=== PATIENT | female | born 2000 | race Caucasian/White ===

== ENCOUNTER 2020-08-26 06:14 | Day surgery (SDC) | payer OTHER ==
[2020-08-26] VITALS (7 sets, daily range): BP systolic 123–143; BP diastolic 67–86
[~2020-08-26] VITALS: Ht 157.5 cm; Wt 74.4 kg
[~2020-08-26 06:14] MED LIST: HEPARIN SOD (PORCINE) 5000UNITS/ML 1ML VIAL/SYRINGE SQ ONE; LIDOCAINE 1% MDV 20ML VIAL SQ PRN; LR 1,000 ML IV ONE; MIDOTAB PO; ceFAZolin SOD 1 GM in D5W MINI-BAG PLUS 50 ML IV ONE
[2020-08-26 06:43] LABS: HEMATOCRIT 43.1 % (36.0-47.0); HEMOGLOBIN 14.5 g/dl (12.0-15.5); MEAN CORPUSCULAR HEMOGLOBIN 31.3 pg (27.0-33.0); MEAN CORPUSCULAR HGB CONC 33.6 g/dl (32.0-36.5); MEAN CORPUSCULAR VOLUME 92.9 fl (80.0-96.0); PLATELET COUNT, AUTOMATED 306 10^3/uL (150-450); RED BLOOD COUNT 4.64 10^6/uL (4.00-5.40); WHITE BLOOD COUNT 9.1 10^3/uL (4.0-10.0)
[2020-08-26] MEDS ORDERED: MIDAZOLAM INJ 2MG/2ML VIAL (J2250 PER 1MG) As Ordered ONE (07:19)
[2020-08-26] MEDS ORDERED: fentaNYL 250 MCG/5 ML INJECTION (J3010) As Ordered ONE (07:19)
[2020-08-26] MEDS ORDERED: ROCURONIUM BROMIDE 50 MG/5 ML VIAL As Ordered ONE ×2 (07:19→08:20)
[2020-08-26] MEDS ORDERED: ONDANSETRON 4MG/2ML VIAL As Ordered ONE (07:19)
[2020-08-26] MEDS ORDERED: LIDOCAINE 2% 100MG/5ML SDV (FOR ANES.) As Ordered ONE (07:19)
[2020-08-26] MEDS ORDERED: dexameTHASONE 4 MG/ML 1ML VIAL (J1100 PER 1MG) As Ordered ONE (07:19)
[2020-08-26] MEDS ORDERED: propofoL 200 MG/20 ML VIAL As Ordered ONE ×2 (07:19→07:45)
[2020-08-26] MEDS ORDERED: BUPIVACAINE LIPOSOME/PF 1.3% 20ML VIAL (13.3MG/ML)(EXPAREL)(C9290 PER1MG) As Ordered ONE (07:26)
[2020-08-26] MEDS ORDERED: BACITRACIN PWD 50,000 UNITS VIAL As Ordered ONE (07:26)
[2020-08-26] MEDS ORDERED: LACRILUBE (AKWA TEARS) OPHTH OINT 3.5 GM As Ordered ONE (08:00)
[2020-08-26] MEDS ORDERED: SUGAMMADEX SODIUM 500 MG/5 ML VIAL (BRIDION) As Ordered ONE (08:00)
[2020-08-26] MEDS ORDERED: HYDROmorphone HCL 2 MG/ML 1ML VIAL (J1170) As Ordered ONE (08:00)
[2020-08-26] MEDS ORDERED: ACETAMINOPHEN 1000MG 100ML IV BTL (OFIRMEV) (J0131 PER 10MG) As Ordered ONE (08:00)
--- NOTE | 2020-08-26 10:53 | POST-OPPD ---
Postoperative Procedure Note Date Of Procedure: Aug 26, 2020 PREOPERATIVE DIAGNOSIS: bilateral breast hypertrophy POSTOPERATIVE DIAGNOSIS: same FINDINGS: large breasts PROCEDURE: Bilateral breast reduction SURGEON: Dr Young ANESTHESIA: General SPECIMENS: Right breast 403 gm, Left breast 362 gm ESTIMATED BLOOD LOSS: 50cc REPLACED: none DRAINS: 10 mm DONTA x 2 COMPLICATIONS: none POSTOPERATIVE CONDITION: stable DANDRE YOUNG DO Aug 26, 2020 10:52
[2020-08-26] MEDS ORDERED: ONDANSETRON 4MG/2ML VIAL IV PRN ×2 (11:00→11:30)
[2020-08-26] MEDS ORDERED: ACETAMINOPHEN TAB 650MG DOSE (2X325MG) PO PRN (11:00)
[2020-08-26] MEDS ORDERED: PERCOCET 5MG/325MG TAB PO PRN (11:00)
[2020-08-26] MEDS ORDERED: LR 1,000 ML IV SCH (11:30)
[2020-08-26] MEDS ORDERED: fentaNYL 100 MCG/2 ML INJECTION (J3010) IV PRN (11:30)
[2020-08-26] MEDS ORDERED: HYDROMORPHONE HCL 0.5 MG/ 0.5 ML SYRINGE (J1170 PER 1) IV PRN (11:30)
[2020-08-26] MEDS ORDERED: oxyCODONE 5MG TAB PO PRN (11:30)
[2020-08-26] MEDS: LR 1,000 ML IV SCH (15:53)
[2020-08-26] MEDS: ceFAZolin SOD 1 GM in D5W MINI-BAG PLUS 50 ML IV SCH (15:53)
[2020-08-26] MEDS: KETOROLAC TROMETHAMINE 10 MG TAB PO PRN (15:56)
[2020-08-27] MEDS: ceFAZolin SOD 1 GM in D5W MINI-BAG PLUS 50 ML IV SCH ×2 (00:16→08:51)
[2020-08-27] MEDS: LR 1,000 ML IV SCH (00:16)
[2020-08-27 02:23] VITALS: BP 123/71
[2020-08-27] MEDS: KETOROLAC TROMETHAMINE 10 MG TAB PO PRN (05:44)
[2020-08-27 06:08] VITALS: BP 125/72
--- NOTE | 2020-08-27 09:01 | IPNPDOC ---
Subjective General Date Seen: Aug 27, 2020 Subject Chief Complaint/History The patient is a 20-year-old female admitted with a reason for visit of Bilateral Breast Hypertrophy. Patient s/p BBR POD 1. Doing well. Taking Toradol for pain. Ambulating. Current Medications Current Medications Current Medications Medications (Trade) Dose Ordered Sig/Faustino Route PRN Reason Start Time Stop Time Status Last Admin Dose Admin Acetaminophen (Tylenol Tab) 650 mg Q6H PRN PO MILD PAIN (PS 1-4) 08/26/20 11:00 08/26/20 19:12 Cefazolin Sodium 1 gm/Dextrose 50 ml @ 100 mls/hr Q8H IV 08/26/20 16:00 08/27/20 00:16 Fentanyl Citrate (Sublimaze) 25 mcg Q5MP PRN IV PAIN LEVEL 5-10 08/26/20 11:30 08/26/20 12:30 DC Hydromorphone HCl (Dilaudid) 0.2 mg Q5MP PRN IV PAIN LEVEL 4-7 08/26/20 11:30 08/26/20 12:30 DC Ketorolac Tromethamine (ToRADol) 10 mg Q6HP PRN PO MODERATE PAIN (PS 5-7) 08/26/20 11:00 08/31/20 10:59 08/27/20 05:44 Lactated Ringer's 1,000 ml @ 75 mls/hr [id number] IV 08/26/20 10:53 08/27/20 00:16 Lactated Ringer's 1,000 ml @ 100 mls/hr Q10H IV 08/26/20 11:30 08/26/20 12:30 DC Lidocaine HCl (LIDOCAINE 1% MDV 20ml) 0.1 ml ONCE PRN SQ DISCOMFORT BEFORE IV START 08/26/20 06:00 Ondansetron HCl (ZOFRAN INJection) 4 mg Q4H PRN IV NAUSEA OR VOMITING 08/26/20 11:00 Ondansetron HCl (ZOFRAN INJection) 4 mg Q4HP PRN IV NAUSEA OR VOMITING 08/26/20 11:30 08/26/20 12:30 DC Oxycodone HCl (Roxicodone, Oxyir) 5 mg ASDIRECTED PRN PO PAIN LEVEL 1-4 08/26/20 11:30 08/26/20 12:30 DC Oxycodone/ Acetaminophen (Percocet 5mg/ 325mg Tablet) 2 tab Q4HP PRN PO PAIN LEVEL 8-10 08/26/20 11:00 Allergies Coded Allergies: No Known Allergies (Unverified , 08/19/20) Objective Physical Examination Examination GENERAL APPEARANCE:Patient seen, laying in bed, awake, alert, and oriented. Comfortable, in no acute distress. SKIN: Warm and moist. BREAST: Right and left soft, non-tender incisions intact. DONTA drains: 20/20 cc/24 hr. NAC: Viable, warm, symmetrical, mild post-op ecchymosis, no expanding hematoma. LUNGS: Clear to auscultation bilaterally. No wheezing appreciated. HEART: No chest wall abnormalities. Regular rate and rhythm with no murmurs wellington reciated. ABDOMEN: Abdomen is soft, non-tender, non-distended. EXTREMITIES: No edema identified. No calf tenderness. Vital Signs Vital Signs Date Time Temp Pulse Resp B/P (MAP) Pulse Ox O2 Delivery O2 Flow Rate FiO2 08/27/20 06:08 96.9 72 18 125/72 (89) 98 Room Air 08/26/20 10:54 3 I&Os I&O- Last 24 Hours up to 6 AM 08/27/20 05:59 Intake Total 2750 ml Output Total 2026 ml Balance 724 ml Impression S/p BBR Doing well Stable for discharge Keep drains, monitor daily output. Bra support. Pain control. No heavy lifting. F/up plastic surgery. Plan / VTE VTE Prophylaxis Ordered?: Yes DANDRE YOUNG DO Aug 27, 2020 09:01
[2020-08-27] MEDS ORDERED: PERCOCET PO (09:07)
--- NOTE | 2020-08-30 16:48 | ROOPDOC ---
[facility] Report Of Operation Report of Operation DATE OF PROCEDURE: 08/26/20 PREPROCEDURE DIAGNOSES: Bilateral breast hypertrophy. POSTPROCEDURE DIAGNOSES: same. PROCEDURE: Bilateral breast reduction. SURGEON: Dr Cali DO ANESTHESIA: General. ESTIMATED BLOOD LOSS: Approximately 50 mL. COMPLICATIONS: none. . DESCRIPTION OF PROCEDURE: This is a 20-year-old female who upper back and neck pain worsened by large breasts. She wears 36DDD bra. She is scheduled for bilateral breast reduction. Risks, benefits, and alternatives were discussed with the patient in detail, and she is ready to proceed. The day of surgery, she was marked in the upright position and informed consent was obtained. She measured 30cm from sternal notch to nipple on both sides, IMF at 22 cm bilaterally. She was brought into the operating room and placed in the supine position. Preoperative antibiotics were given. Sequential pneumatic stocking were placed on the lower calves. General anesthesia was induced. She was prepped and draped in the usual sterile fashion. We started our procedure on the right side. Her nipple areolar complex was outlined 42 mm in diameter, and the patient was marked according superior medial pedicle. We started our incision by scoring the nipple areolar complex area, and then dissection was continued until the inferior lateral portion of the breast was resected. Hemostasis was obtained using electrocautery. The pedicle was de- epithelialized using Abrams scissors, good perfusion to the nipple at all times. Wound was irrigated with Bacitracin solution. We used Exparel 6 cc for local anesthesia to infiltrate in the Pectoralis muscle as well as the breast tissue. Than pedicle was turned superior to its new location at 22 cm from sternal notch. The mound was re-created using conforming 0 Vicryl sutures. Pillars were closed with interrupted 3-0 Monocryl sutures. The vertical limb was 7 cm. Excess tissue inferiorly was measured and resected, creating the horizontal scar. Nipple area complex was brought into view through the new opening and sutured in place with 3-0 and 4-0 Monocryl sutures and a 5-0 plain. A 10 mm Brent-Bennett drain was placed through the lateral portion of the horizontal incision. Then we turned our attention to the left side. Mirror procedure was carried out. Again, resection was done according to superior-medial pedicle using elect rocautery and PEEK cautery. Hemostasis was obtained. The pedicle was in good viable condition. Exparel was infiltrated through the pectoralis muscle and the breast tissue 6 cc. Than pedicle was turned superior to its new location at 22 cm from sternal notch. The mound was re-created using conforming 0 Vicryl sutures. Pillars were closed with interrupted 3-0 Monocryl sutures. The vertical limb was 7 cm. Excess tissue inferiorly was measured and resected, creating the horizontal scar. Nipple area complex was brought into view through the new opening and sutured in place with 3-0 and 4-0 Monocryl sutures and a 5-0 plain. A 10 mm Brent-Bennett drain was placed through the lateral portion of the horizontal incision. Resected tissue sent to pathology in two specimens right and left breast tissue. Dressings were applied to vertical and horizontal incision: Prineo. Nipples areolar complex: Xeroform and a bulky dressing with a surgical bra. Patient was extubated in the operating room without difficulty and was transferred to the recovery room in stable condition. DANDRE YOUNG DO Aug 30, 2020 16:48
== END 2020-08-27 12:31 | disposition home or self-care (01) ==
LOC: M SDC 06:14 → M MS5PR 11:50 → M SDC 08-27 12:31
PROVIDERS: ATTEND Plastic Surgery Surgery of the Hand
DX: N62 Hypertrophy of breast (principal)
CPT/HCPCS: 19318; 36415; 81025; 85027; 88305; 96365; 96366; C9290; J0131; J0690; J1100; J1170; J1644; J2250; J2405; J3010